=== PATIENT | female | born 1965 | race Caucasian/White ===

== ENCOUNTER 2018-12-09 13:54 | Emergency (ER) | payer BC ==
[~2018-12-09] VITALS: Ht 167.6 cm; Wt 69.4 kg
[2018-12-09 14:00] VITALS: BP_SYST 135
[2018-12-09 15:35] LABS: BASOPHILS # (AUTO) 0.1 K/uL (0.0-0.2); BASOPHILS % (AUTO) 0.4 % (0.0-2.0); EOSINOPHILS % (AUTO) 0.2 % (0.0-4.0); HEMATOCRIT 34.6 % (36-48); HEMOGLOBIN 11.6 g/dL (12.0-16.0); LYMPHOCYTES # (AUTO) 0.6 K/uL (1.0-5.5); LYMPHOCYTES % (AUTO) 4.7 % (20.5-51.5); MEAN CORPUSCULAR HEMOGLOBIN 32 pg (27-31); MEAN CORPUSCULAR HGB CONC 34 % (32-36); MEAN CORPUSCULAR VOLUME 95 fL (79.0-98.0); MONOCYTES # (AUTO) 0.6 K/uL (0.0-1.0); MONOCYTES % (AUTO) 4.9 % (1.7-9.3); NEUTROPHILS # (AUTO) 11.6 K/uL (1.8-7.7); NEUTROPHILS % (AUTO) 89.8 % (40.0-70.0); PLATELET COUNT (AUTO) 347 K/uL (130-430); RED BLOOD CELL COUNT(AUTO) 3.66 MIL/uL (4.2-6.2); RED CELL DISTRIBUTION WIDTH 13.2 % (9.0-15.0); WHITE BLOOD COUNT (AUTO) 12.9 K/uL (4.8-10.8)
[2018-12-09 15:42] LABS: PROTHROMBIN TIME 10.2 SECS (9.5-12.5)
[2018-12-09 15:48] LABS: CALCIUM 9.3 mg/dL (8.4-11.0); CREATININE 0.87 mg/dL (0.55-1.30); POTASSIUM 3.3 mmol/L (3.5-5.1)
[2018-12-09 15:52] LABS: ALBUMIN 3.9 g/dL (3.4-4.8); TOTAL BILIRUBIN 0.4 mg/dL (0.0-1.0)
--- NOTE | 2018-12-09 16:39 | NUR ---
BROUGHT BACK TO HALLWAY BED AND TRIAGED. REPORT GIVEN TO PAUL
--- NOTE | 2018-12-09 16:48 | NUR ---
DR CLANCY AT BEDSIDE FOR EVALUATION
--- NOTE | 2018-12-09 16:50 | NUR ---
Pt presents to the ER with N/V/D and abd pain since this am. Pt reports eating [employer]de[employer] food for dinner last night. Current temp is 100.1. Dr. Negron notified.
[2018-12-09] MEDS ORDERED: NACL 0.9% 1,000 ML IV ONE (17:00)
[2018-12-09] MEDS ORDERED: KETOROLAC TROMETHAMINE 30 MG VIAL IVP ONE (17:00)
[2018-12-09] MEDS ORDERED: ONDANSETRON HCL 4 MG/2 ML VIAL IVP ONE (17:00)
--- NOTE | 2018-12-09 17:04 | NUR ---
Inserted 22g IV on the RFA using aseptic technique. Patient tolerated well.
--- NOTE | 2018-12-09 17:10 | NUR ---
medicated the pt with Toradol and Zofran IVP per MD order. Will reassess.
[2018-12-09 17:26] LABS: BILIRUBIN,URINE NEGATIVE (NEGATIVE); BLOOD, URINE NEGATIVE (NEGATIVE); CLARITY/URINE CLEAR (CLEAR); COLOR,URINE YELLOW (YELLOW); GLUCOSE,URINE NEGATIVE (NEGATIVE); KETONES,URINE NEGATIVE (NEGATIVE); LEUKOCYTE ESTERASE ,URINE NEGATIVE (NEGATIVE); NITRITE, URINE NEGATIVE (NEGATIVE); PROTEIN URINE NEGATIVE (NEGATIVE); UROBILINOGEN,URINE 0.2 (0.2-1.0)
--- NOTE | 2018-12-09 18:20 | NUR ---
Patient given written and verbal discharge instructions and verbalizes understanding. ER MD discussed with patient the results and treatment provided. Patient in stable condition. ID arm band removed. IV catheter removed intact and dressing applied, no active bleeding.Rx of Motrin and [place] given. Patient educated on pain management and to follow up with PMD. Pain Scale 3/10 .Opportunity for questions provided and answered. Medication side effect fact sheet provided.
[2018-12-09 18:29] VITALS: BP_SYST 135
== END 2018-12-09 18:20 | disposition home or self-care (01) ==
LOC: SED 13:54
DX: K52.9 Noninfective gastroenteritis and colitis, unspecified (principal)
CPT/HCPCS: 36415; 74176; 80053; 81003; 81025; 82150; 83690; 85025; 85610; 85730; 96374; 96375; 99284; J1885; J2405; J7030